=== PATIENT | male | born 1935 | race Caucasian/White ===

== ENCOUNTER 2020-09-04 10:41 | Day surgery (SDC) | payer MEDICARE, BC ==
[~2020-09-04] VITALS: Ht 182.9 cm; Wt 84.1 kg
[2020-09-04 10:58] VITALS: BP 127/68
[2020-09-04] MEDS ORDERED: LIDOcaine Viscous 15ml cup ONE (11:22)
[2020-09-04] MEDS ORDERED: fentaNYL/PF 50MCG/1 ML 2ML syringe ONE (11:22)
[2020-09-04] MEDS ORDERED: MIDAZolam 5mg/5ml vial ONE (11:22)
[2020-09-04 11:35] VITALS: BP 131/67
[2020-09-04] MEDS ORDERED: ALLO300T2 PO (11:39)
[2020-09-04] MEDS ORDERED: AMLO5TAB PO (11:39)
[2020-09-04] MEDS ORDERED: CHLO25TA10 PO (11:40)
[2020-09-04] MEDS ORDERED: CETI10TA15 PO (11:40)
[2020-09-04] MEDS ORDERED: CARV3.12 PO (11:41)
[2020-09-04] MEDS ORDERED: DULO20CA50 PO (11:42)
[2020-09-04] MEDS ORDERED: FLUT16SP2 BOTHNARES (11:43)
[2020-09-04] MEDS ORDERED: FLO0.4C PO (11:43)
[2020-09-04] MEDS ORDERED: POTA20TA10 PO (11:44)
[2020-09-04 11:45] VITALS: BP 119/72
[2020-09-04] MEDS ORDERED: ATOR40TA PO (11:45)
[2020-09-04] MEDS ORDERED: LOSA50TA3 PO (11:45)
[2020-09-04] MEDS ORDERED: PANT-47 PO (11:46)
[2020-09-04] MEDS ORDERED: WARF2.5T82 PO (11:47)
[2020-09-04] MEDS ORDERED: WARF-55 PO (11:47)
[2020-09-04] MEDS ORDERED: ONDA4TAB6 PO (11:48)
[2020-09-04] MEDS ORDERED: ACET500C5 PO (11:49)
[2020-09-04 11:55] VITALS: BP 139/62
[2020-09-04 12:05] VITALS: BP 132/71
== END 2020-09-04 12:15 | disposition home or self-care (01) ==
LOC: GI LAB 10:41
PROVIDERS: ATTEND Internal Medicine Gastroenterology
DX: R10.13 Epigastric pain (principal); K22.2 Esophageal obstruction; K44.9 Diaphragmatic hernia without obstruction or gangrene; K29.60 Other gastritis without bleeding; I10 Essential (primary) hypertension; Z86.73 Personal history of transient ischemic attack (TIA), and cerebral infarction without residual deficits; Z87.891 Personal history of nicotine dependence; Z79.899 Other long term (current) drug therapy
CPT/HCPCS: 43235; G0500; J2250; J3010; J7040; 99152; A4620